=== PATIENT | female | born 1985 | race African-American/Black ===

== ENCOUNTER 2018-05-02 15:00 | Emergency (ER) | payer MEDICAID ==
[~2018-05-02] VITALS: Ht 165.1 cm; Wt 82.0 kg
[~2018-05-02 15:00] MED LIST: FERR-63 PO; PREN-88 PO
[2018-05-02] MEDS ORDERED: IBUPROFEN 800MG TABLET PO ONE (17:15)
[2018-05-02 17:26] LABS: CLARITY URINE CLEAR (CLEAR); COLOR URINE YELLOW (YELLOW); KETONES URINE NEGATIVE (NEGATIVE); LEUKOCYTE ESTERASE URINE NEGATIVE (NEGATIVE); NITRITE URINE NEGATIVE (NEGATIVE); OCCULT BLOOD URINE NEGATIVE (NEGATIVE); PROTEIN URINE NEGATIVE (NEGATIVE)
[2018-05-02 18:25] LABS: BASOPHILS % 0.6 % (0.0-2.0); CHLORIDE 106 mEq/L (98-107); EOSINOPHILS % 1.4 % (0.0-5.0); HEMATOCRIT. 40.3 % (36.0-48.0); HEMOGLOBIN. 13.1 g/dL (12.0-16.0); MEAN CORPUSCULAR HEMOGLOBIN 28.5 pg (28.0-32.0); MEAN CORPUSCULAR VOLUME 87.6 fL (81.0-99.0); MEAN PLATELET VOLUME 8.6 fl (7.4-10.4); MONOCYTES % 5.4 % (2.0-8.0); NEUTROPHILS % 53.6 % (40.0-76.0); PLATELET 273 x1000/uL (130-400); RED BLOOD CELL COUNT 4.61 mill/uL (4.2-5.4); RED CELL DISTRIBUTION WIDTH 13.3 % (11.6-14.6)
[2018-05-02 18:33] LABS: D-DIMER 1.44 mg/L FEU (<0.50); PARTIAL THROMBOPLASTIN TIME 29.7 sec (23.4-31.0); PROTHROMBIN TIME 10.2 sec (9.1-11.1)
[2018-05-02 18:40] LABS: HCG SCREEN NEGATIVE
[2018-05-02] MEDS ORDERED: IOHEXOL-350 100 ML BOTTLE ONE (20:40)
[2018-05-02 21:07] VITALS: BP 122/57
== END 2018-05-02 21:08 | disposition home or self-care (01) ==
LOC: ER 15:56
DX: R07.89 Other chest pain (principal); R03.0 Elevated blood-pressure reading, without diagnosis of hypertension; Z96.89 Presence of other specified functional implants
CPT/HCPCS: 36415; 71045; 71275; 80053; 81003; 81025; 84484; 84703; 85025; 85379; 85610; 85730; 93005; 99285; Q9967; Z7610

== ENCOUNTER 2019-01-21 08:42 | Emergency (ER) | payer MEDICAID ==
[~2019-01-21] VITALS: Ht 165.1 cm; Wt 87.0 kg
[2019-01-21] MEDS ORDERED: SODIUM CHLORIDE 0.9% 1,000 ML IV ONE (09:22)
[2019-01-21 10:15] LABS: CLARITY URINE CLEAR (CLEAR); COLOR URINE YELLOW (YELLOW); KETONES URINE NEGATIVE (NEGATIVE); LEUKOCYTE ESTERASE URINE NEGATIVE (NEGATIVE); NITRITE URINE NEGATIVE (NEGATIVE); OCCULT BLOOD URINE NEGATIVE (NEGATIVE); PH URINE 6.5 (4.5-8.0); PROTEIN URINE NEGATIVE (NEGATIVE); SPECIFIC GRAVITY URINE 1.015 (1.005-1.030)
[2019-01-21] MEDS ORDERED: METOCLOPRAMIDE HCL 10MG/2ML VIAL IV ONE (10:15)
[2019-01-21] MEDS ORDERED: DIPHENHYDRAMINE 50MG/ML VIAL IV ONE (10:15)
[2019-01-21 10:17] LABS: BASOPHILS % 0.9 % (0.0-2.0); EOSINOPHILS % 0.7 % (0.0-5.0); HEMATOCRIT. 46.1 % (36.0-48.0); HEMOGLOBIN. 15.4 g/dL (12.0-16.0); LYMPHOCYTES % 23.9 % (20.0-50.0); MEAN CORPUSCULAR HEMOGLOBIN 29.2 pg (28.0-32.0); MEAN CORPUSCULAR VOLUME 87.4 fL (81.0-99.0); MEAN PLATELET VOLUME 8.3 fl (7.4-10.4); NEUTROPHILS % 70.5 % (40.0-76.0); PLATELET 210 x1000/uL (130-400); RED BLOOD CELL COUNT 5.28 mill/uL (4.2-5.4); RED CELL DISTRIBUTION WIDTH 12.8 % (11.6-14.6)
[2019-01-21 10:24] LABS: CHLORIDE 108 mEq/L (98-107)
[2019-01-21] MEDS ORDERED: KETOROLAC 15MG/ML VIAL IV ONE (11:45)
[2019-01-21 12:03] VITALS: BP 121/80
[2019-01-24 06:13] LABS: HIV SCREEN 4G Non Reactive (Non Reactive)
== END 2019-01-21 12:05 | disposition home or self-care (01) ==
LOC: ER 08:42
DX: G44.209 Tension-type headache, unspecified, not intractable (principal)
CPT/HCPCS: 36415; 70450; 80053; 81003; 81025; 85025; 87389; 96361; 96374; 96375; 99284; J1200; J1885; J2765; J7030; Z7610

== ENCOUNTER 2019-02-09 15:07 | Emergency (ER) | payer MEDICAID ==
[~2019-02-09] VITALS: Ht 165.1 cm; Wt 64.0 kg
[2019-02-09] MEDS ORDERED: KETOROLAC 60MG/2ML VIAL IM ONE (16:00)
[2019-02-09] MEDS ORDERED: BACLOFEN 10MG TABLET PO ONE (16:00)
[2019-02-09 16:26] VITALS: BP 134/78
== END 2019-02-09 16:34 | disposition home or self-care (01) ==
LOC: ER 15:07
DX: M54.16 Radiculopathy, lumbar region (principal)
CPT/HCPCS: 81025; 96372; 99283; J1885

== ENCOUNTER 2019-09-27 10:25 | Emergency (ER) | payer OTHER ==
[~2019-09-27] VITALS: Ht 167.6 cm; Wt 82.0 kg
[2019-09-27] MEDS ORDERED: ONDANSETRON HCL 4MG/2ML INJ IV STA (11:09)
[2019-09-27] MEDS ORDERED: KETOROLAC 30MG/ML VIAL IV STA (11:09)
[2019-09-27] MEDS ORDERED: SODIUM CHLORIDE 0.9% 1,000 ML IV ONE (11:09)
[2019-09-27 11:21] LABS: BASOPHILS % 0.7 % (0.0-2.0); EOSINOPHILS % 1.1 % (0.0-5.0); HEMATOCRIT. 40.9 % (36.0-48.0); HEMOGLOBIN. 13.8 g/dL (12.0-16.0); LYMPHOCYTES % 31.3 % (20.0-50.0); MEAN CORPUSCULAR HEMOGLOBIN 30.1 pg (28.0-32.0); MEAN CORPUSCULAR VOLUME 89.2 fL (81.0-99.0); MEAN PLATELET VOLUME 7.8 fl (7.4-10.4); MONOCYTES % 3.3 % (2.0-8.0); NEUTROPHILS % 63.6 % (40.0-76.0); PLATELET 333 x1000/uL (130-400); RED BLOOD CELL COUNT 4.59 mill/uL (4.2-5.4); RED CELL DISTRIBUTION WIDTH 15.3 % (11.6-14.6)
[2019-09-27 11:30] LABS: CHLORIDE 105 mEq/L (98-107)
[2019-09-27 11:34] LABS: ETHANOL BLOOD < 10 mg/dL
[2019-09-27] MEDS ORDERED: LORAZEPAM 2MG/ML CPJ IV ONE (11:45)
[2019-09-27] MEDS ORDERED: ACETAMINOPHEN WITH CODEINE 300/30MG TABLET PO ONE (13:30)
[2019-09-27 13:40] VITALS: BP 128/89
== END 2019-09-27 14:23 | disposition home or self-care (01) ==
LOC: ER 10:40
DX: R51 Headache (principal); R11.0 Nausea; F12.10 Cannabis abuse, uncomplicated
CPT/HCPCS: 36415; 70450; 80053; 80320; 83690; 85025; 96361; 96374; 96375; 99284; J1885; J2060; J2405; J7030; G0480